=== PATIENT | male | born 1955 | race Two or more races ===

== ENCOUNTER 2023-10-04 15:53 | Outpatient (OUT) | payer BC, SELFPAY ==
--- NOTE | 2023-10-04 | XR_ITS ---
The [address] [address] Patient Name: CHANO PETTIT MRN: [id number] date: 1955 Sex: M Assigned Patient Location: [facility] Current Patient Location: Accession/Order Number: [id number] Exam Date: 10/04/2023 16:09 Report Date: 10/07/2023 07:01 At the request of: PHAN ZENG Procedure: XR lumbar spine 2-3V EXAMINATION: XR lumbar spine 2-3V HISTORY: m54.26 Lumbar Radiculopathy ; low back and right leg pain and numbness for one year COMPARISON: No relevant comparison available. FINDINGS: BONES: Moderate right convex curvature of lumbar spine. Mild anterior wedging of T12 vertebral body without increased density. Minimal grade 1 retrolisthesis of L2 on 3 and L3 on 4. Moderate degenerative facet arthropathy L4-5, L5-S1. DISC SPACES: Moderate narrowing L3-4, L4-5. PARASPINOUS: Negative. No paraspinous abnormality is seen. OTHER: Negative. XR/XR lumbar spine 2-3V IMPRESSION: 1. Dextroscoliosis and moderate degenerative changes of lumbar spine. Consider MRI for further evaluation. Electronically authenticated by: DESEAN SPRINGER Date: 10/07/2023 07:01
== END 2023-10-04 15:54 | disposition home or self-care (01) ==
LOC: RAD 15:55
PROVIDERS: PCP Family Medicine; Visit Provider Family Medicine
DX: M54.16 Radiculopathy, lumbar region (principal)
CPT/HCPCS: 72100

== ENCOUNTER 2023-10-16 15:45 | Outpatient (RCR) | payer BC, SELFPAY | END 2023-11-17 08:00 | disposition home or self-care (01) | LOC: PT 15:45 | PROVIDERS: PCP Family Medicine; Visit Provider Family Medicine | DX: M54.16 Radiculopathy, lumbar region (principal) | CPT/HCPCS: 97110; 97112; 97140; 97162 ==

== ENCOUNTER 2023-11-18 10:24 | Outpatient (RCR) | payer BC, SELFPAY | END 2023-12-12 16:59 | disposition home or self-care (01) | LOC: PT 10:24 | PROVIDERS: PCP Family Medicine; Visit Provider Family Medicine | DX: M54.16 Radiculopathy, lumbar region (principal) | CPT/HCPCS: 97010; 97110; 97112; 97140 ==